=== PATIENT | male | born 1975 | race Caucasian/White ===

== ENCOUNTER 2017-01-02 20:34 | Emergency (ER) | payer MEDICAID ==
[~2017-01-02] VITALS: Ht 170.2 cm; Wt 77.6 kg
[2017-01-02 23:45] VITALS: BP 138/80
== END 2017-01-03 00:15 | disposition home or self-care (01) ==
LOC: ER 21:39
DX: S00.83XA Contusion of other part of head, initial encounter (principal); Y08.89XA Assault by other specified means, initial encounter; Y93.89 Activity, other specified; Y92.89 Other specified places as the place of occurrence of the external cause; Y99.8 Other external cause status; Z98.890 Other specified postprocedural states
CPT/HCPCS: 70450; 72125; 99284

== ENCOUNTER 2017-01-07 17:48 | Emergency (ER) | payer MEDICAID ==
[~2017-01-07] VITALS: Ht 170.2 cm; Wt 81.0 kg
[2017-01-07 17:50] VITALS: BP 134/87
== END 2017-01-07 19:04 | disposition home or self-care (01) ==
LOC: ER 18:25
DX: Z51.89 Encounter for other specified aftercare (principal)
CPT/HCPCS: 99281